=== PATIENT | female | born 1985 | race African-American/Black ===

== ENCOUNTER 2016-08-16 01:19 | Observation (INO) | payer MEDICAID ==
[~2016-08-16] VITALS: Ht 157.5 cm; Wt 59.0 kg
[2016-08-16] MEDS ORDERED: PREN-88 PO (02:15)
[2016-08-16] MEDS ORDERED: TERBUTALINE SULFATE 1MG/ML VIAL SUBCUT PRN (02:30)
[2016-08-16] MEDS ORDERED: LACTATED RINGERS 1,000 ML IV SCH (02:51)
[2016-08-16 05:37] LABS: CLARITY URINE CLEAR (CLEAR); COLOR URINE YELLOW (YELLOW); GLUCOSE URINE NEGATIVE (NEGATIVE); KETONES URINE 1+ (NEGATIVE); LEUKOCYTE ESTERASE URINE 1+ (NEGATIVE); NITRITE URINE NEGATIVE (NEGATIVE); OCCULT BLOOD URINE NEGATIVE (NEGATIVE); PROTEIN URINE NEGATIVE (NEGATIVE); SPECIFIC GRAVITY URINE 1.015 (1.005-1.030)
[2016-08-16 06:01] LABS: RBC URINE NONE SEEN /hpf (0-2); SQUAMOUS EPITHELIAL CELL URINE 1+ /lpf (RARE/1+)
[2016-08-16 06:02] LABS: BACTERIA URINE TRACE; MUCUS URINE 1+ /lpf (< = 2+)
[2016-08-16] MEDS ORDERED: ACETAMINOPHEN 500MG TABLET PO NR (07:15)
== END 2016-08-16 09:35 | disposition home or self-care (01) ==
LOC: L&D 01:19
PROVIDERS: ADMIT Specialist; ATTEND Specialist
DX: O26.892 Other specified pregnancy related conditions, second trimester (principal); R10.30 Lower abdominal pain, unspecified; R10.2 Pelvic and perineal pain; Z3A.24 24 weeks gestation of pregnancy
CPT/HCPCS: 76770; 81001; 82731; 96360; 96361; 96372; 99281; G0378; J3105

== ENCOUNTER 2016-10-23 10:40 | Observation (INO) | payer MEDICAID ==
[~2016-10-23] VITALS: Ht 157.5 cm; Wt 59.9 kg
[~2016-10-23 10:40] MED LIST: PREN-88 PO
[2016-10-23] MEDS ORDERED: TERBUTALINE SULFATE 1MG/ML VIAL SUBCUT PRN (11:30)
[2016-10-23] MEDS ORDERED: LACTATED RINGERS 1,000 ML IV SCH (11:30)
[2016-10-23 11:36] LABS: CLARITY URINE CLEAR (CLEAR); COLOR URINE DARK YELLOW (YELLOW); GLUCOSE URINE NEGATIVE (NEGATIVE); KETONES URINE 4+ (NEGATIVE); LEUKOCYTE ESTERASE URINE 1+ (NEGATIVE); NITRITE URINE NEGATIVE (NEGATIVE); OCCULT BLOOD URINE NEGATIVE (NEGATIVE); PROTEIN URINE NEGATIVE (NEGATIVE); SPECIFIC GRAVITY URINE 1.019 (1.005-1.030)
[2016-10-23] MEDS ORDERED: ACETAMINOPHEN 500MG TABLET PO NR (11:45)
[2016-10-23 12:04] LABS: HEMATOCRIT. 32.3 % (36.0-48.0); HEMOGLOBIN. 9.9 g/dL (12.0-16.0); MEAN CORPUSCULAR HEMOGLOBIN 24.3 pg (28.0-32.0); MEAN CORPUSCULAR VOLUME 79.3 fL (81.0-99.0); MEAN PLATELET VOLUME 8.4 fl (7.4-10.4); PLATELET 219 x1000/uL (130-400); RED BLOOD CELL COUNT 4.07 mill/uL (4.2-5.4); RED CELL DISTRIBUTION WIDTH 16.8 % (11.6-14.6)
[2016-10-23 12:22] LABS: PLATELET ESTIMATE NORMAL
[2016-10-23] MEDS: DEXT 5%/LACTATED RINGERS 1,000 ML IV SCH ×2 (13:22→18:58)
[2016-10-23] MEDS: MAGNESIUM 20 G PREMIX (L & D) 500 ML IV SCH ×2 (13:22→20:43)
[2016-10-23] MEDS ORDERED: CEFAZOLIN 2,000 MG in DEXT 5% WATER 100 ML IV SCH (14:00)
[2016-10-23] MEDS ORDERED: VANCOMYCIN 1 G PREMIX 200 ML IV SCH (18:00)
[2016-10-23] MEDS ORDERED: VANCOMYCIN 1,250 MG in DEXT 5% WATER 250 ML IV SCH (18:45)
[2016-10-23 19:03] LABS: CARBON DIOXIDE 22 mEq/L (21-32); CHLORIDE 105 mEq/L (98-107)
[2016-10-23] MEDS: BUTORPHANOL TARTRATE 2 MG/ML VIAL IV PRN (19:14)
[2016-10-23] MEDS ORDERED: CEFTRIAXONE 2 G PREMIX 50 ML IV SCH (20:30)
[2016-10-24] MEDS: BUTORPHANOL TARTRATE 2 MG/ML VIAL IV PRN ×5 (00:25→21:51)
[2016-10-24] MEDS ORDERED: DEXT 5%/LACTATED RINGERS 1,000 ML IV SCH (03:06)
[2016-10-24 05:20] LABS: PARTIAL THROMBOPLASTIN TIME 33.8 sec (24.0-34.0); PROTHROMBIN TIME 10.7 sec
[2016-10-24 05:35] LABS: HEMATOCRIT. 28.4 % (36.0-48.0); HEMOGLOBIN. 8.7 g/dL (12.0-16.0); MEAN CORPUSCULAR HEMOGLOBIN 23.9 pg (28.0-32.0); MEAN CORPUSCULAR VOLUME 77.9 fL (81.0-99.0); MEAN PLATELET VOLUME 8.4 fl (7.4-10.4); PLATELET 252 x1000/uL (130-400); RED BLOOD CELL COUNT 3.64 mill/uL (4.2-5.4); RED CELL DISTRIBUTION WIDTH 17.2 % (11.6-14.6)
[2016-10-24 05:54] LABS: PLATELET ESTIMATE NORMAL
[2016-10-24] MEDS: BETAMETHASONE ACET/BETAMET 30 MG/5 ML VIAL IM SCH (06:10)
[2016-10-24 06:47] LABS: RUBELLA IGG 89.7 IU/mL (4.99-10)
[2016-10-24 06:48] LABS: HEPATITIS B SURFACE ANTIGEN NEGATIVE
[2016-10-24 08:02] LABS: *AMPHETAMINES SCREEN URINE NEGATIVE (NEGATIVE); *BARBITURATES SCREEN URINE NEGATIVE (NEGATIVE); *BENZODIAZEPINES SCREEN URINE NEGATIVE (NEGATIVE); *COCAINE SCREEN URINE NEGATIVE (NEGATIVE); CANNABINOID URINE SCREEN NEGATIVE (NEGATIVE); METHADONE URINE SCREEN NEGATIVE (NEGATIVE); OPIATES URINE SCREEN NEGATIVE (NEGATIVE); PHENCYCLIDINE URINE SCREEN NEGATIVE (NEGATIVE)
[2016-10-24] MEDS: DEXT 5%/LACTATED RINGERS 1,000 ML IV SCH ×2 (09:28→16:20)
[2016-10-24] MEDS: VANCOMYCIN 1 G PREMIX 200 ML IV SCH ×2 (09:33→17:27)
[2016-10-24] MEDS: DIPHENHYDRAMINE 50MG/ML VIAL IM PRN ×2 (16:51→22:24)
[2016-10-24] MEDS ORDERED: CEFTRIAXONE 2 G in DEXTROSE 5% WATER 50 ML IV SCH (20:30)
[2016-10-25] MEDS ORDERED: BETAMETHASONE ACET/BETAMET 30 MG/5 ML VIAL IM SCH (02:00)
[2016-10-25] MEDS: DEXT 5%/LACTATED RINGERS 1,000 ML IV SCH (02:03)
[2016-10-25] MEDS: VANCOMYCIN 1 G PREMIX 200 ML IV SCH (02:04)
[2016-10-25 02:05] VITALS: BP 100/55
[2016-10-25] MEDS: BUTORPHANOL TARTRATE 2 MG/ML VIAL IV PRN (02:05)
[2016-10-25 02:20] LABS: HEMOGLOBIN. 8.9 g/dL (12.0-16.0); MEAN CORPUSCULAR HEMOGLOBIN 24.3 pg (28.0-32.0); MEAN CORPUSCULAR VOLUME 78.8 fL (81.0-99.0); MEAN PLATELET VOLUME 7.9 fl (7.4-10.4); PLATELET 261 x1000/uL (130-400); RED BLOOD CELL COUNT 3.68 mill/uL (4.2-5.4); RED CELL DISTRIBUTION WIDTH 16.8 % (11.6-14.6)
[2016-10-25 02:27] LABS: CARBON DIOXIDE 25 mEq/L (21-32); CHLORIDE 109 mEq/L (98-107)
[2016-10-25] MEDS: BETAMETHASONE ACET/BETAMET 30 MG/5 ML VIAL IM SCH (06:39)
[2016-10-25 11:59] LABS: PLATELET ESTIMATE NORMAL
== END 2016-10-25 08:28 | disposition left against medical advice (07) ==
LOC: L&D 10:40
PROVIDERS: ADMIT Specialist; ATTEND Specialist
DX: O60.03 Preterm labor without delivery, third trimester (principal); O99.013 Anemia complicating pregnancy, third trimester; O99.283 Endocrine, nutritional and metabolic diseases complicating pregnancy, third trimester; O23.43 Unspecified infection of urinary tract in pregnancy, third trimester; O26.893 Other specified pregnancy related conditions, third trimester; E83.51 Hypocalcemia; E87.1 Hypo-osmolality and hyponatremia; E86.0 Dehydration; E87.6 Hypokalemia; R50.9 Fever, unspecified; Z3A.34 34 weeks gestation of pregnancy
CPT/HCPCS: 36415; 70544; 70551; 76805; 76817; 80048; 80202; 80305; 81001; 82731; 83735; 85025; 85610; 85730; 86592; 86703; 86762; 86850; 86900; 86901; 87040; 87070; 87086; 87106; 87340; 96361; 96365; 96366; 96367; 96368; 96372; 96375; 96376; 99285; G0378; J0595; J0690; J0696; J0702; J1200; J3370; J3475; J7120; J7121; 96360; J3105; J7060; A4315

== ENCOUNTER 2017-08-24 15:41 | Emergency (ER) | payer MEDICAID ==
[~2017-08-24] VITALS: Ht 157.5 cm; Wt 65.0 kg
[2017-08-24 16:46] LABS: CLARITY URINE CLEAR (CLEAR); COLOR URINE YELLOW (YELLOW); KETONES URINE TRACE (NEGATIVE); LEUKOCYTE ESTERASE URINE NEGATIVE (NEGATIVE); NITRITE URINE NEGATIVE (NEGATIVE); OCCULT BLOOD URINE NEGATIVE (NEGATIVE); PROTEIN URINE NEGATIVE (NEGATIVE); SPECIFIC GRAVITY URINE 1.027 (1.005-1.030)
[2017-08-24 16:57] LABS: BASOPHILS % 0.5 % (0.0-2.0); CHLORIDE 105 mEq/L (98-107); EOSINOPHILS % 3.5 % (0.0-5.0); LYMPHOCYTES % 32.9 % (20.0-50.0); MEAN CORPUSCULAR HEMOGLOBIN 33.6 pg (28.0-32.0); MEAN CORPUSCULAR VOLUME 100.6 fL (81.0-99.0); MEAN PLATELET VOLUME 8.1 fl (7.4-10.4); MONOCYTES % 13.6 % (2.0-8.0); NEUTROPHILS % 49.5 % (40.0-76.0); PLATELET 253 x1000/uL (130-400); RED BLOOD CELL COUNT 3.88 mill/uL (4.2-5.4); RED CELL DISTRIBUTION WIDTH 13.2 % (11.6-14.6)
[2017-08-24 17:00] LABS: PROTHROMBIN TIME 10.7 sec (9.4-11.6)
[2017-08-24] MEDS ORDERED: MAGNESIUM/ALUMINUM HYDROXIDE/SIMETHICONE 30ML UDC PO ONE (23:00)
[2017-08-25 00:29] VITALS: BP 131/79
== END 2017-08-25 00:36 | disposition home or self-care (01) ==
LOC: ER 16:30
DX: R10.13 Epigastric pain (principal)
CPT/HCPCS: 36415; 80053; 81003; 81025; 83690; 85025; 85610; 99284; Z7610